=== PATIENT | male | born 1980 | race Caucasian/White ===

== ENCOUNTER 2016-10-06 10:15 | Emergency (ER) | payer MEDICAID ==
[~2016-10-06] VITALS: Wt 68.5 kg
[~2016-10-06 10:15] MED LIST: BACTDS PO; CLIN-73 PO; HYDR-3498 PO; IBUP-1542 PO
[2016-10-06] MEDS ORDERED: SOD CHLORIDE 0.9% 1,000 ML IV STA (11:40)
[2016-10-06 12:07] LABS: ALBUMIN 4.5 g/dl (3.3-4.9)
[2016-10-06 12:08] LABS: BASOPHIL # 0.1 10^3/ul (0.0-0.1); BASOPHILS % 0.6 % (0.0-2.0); EOSINOPHILS # 0.1 10^3/ul (0.0-0.5); EOSINOPHILS % 1.4 % (0.0-7.0); HEMATOCRIT 39.5 % (42.0-52.0); HEMOGLOBIN 13.5 g/dl (14.0-18.0); LYMPHOCYTES # 3.2 10^3/ul (0.8-2.9); LYMPHOCYTES % 34.9 % (15.0-51.0); MEAN CORPUSCULAR HEMOGLOBIN 28.8 pg (29.0-33.0); MEAN CORPUSCULAR HGB CONC 34.1 g/dl (32.0-37.0); MEAN CORPUSCULAR VOLUME 84.4 fl (82.0-101.0); MEAN PLATELET VOLUME 9.5 fl (7.4-10.4); MONOCYTE # 0.6 10^3/ul (0.3-0.9); MONOCYTES % 6.4 % (0.0-11.0); NEUTROPHIL # 5.3 10^3/ul (1.6-7.5); NEUTROPHILS % 56.7 % (39.0-77.0); PLATELET COUNT 226 10^3/UL (140-440); POTASSIUM 3.4 mmol/L (3.5-5.1); RED BLOOD COUNT 4.68 10^6/ul (4.70-6.10); RED CELL DISTRIBUTION WIDTH 13.1 % (11.5-14.5); UNCORRECTED WBC 9.3 10^3/ul (4.8-10.8); WHITE BLOOD COUNT 9.3 10^3/ul (4.8-10.8)
[2016-10-06 12:09] LABS: ADD UMIC YES; URINE BILIRUBIN (Dip) NEGATIVE (NEGATIVE); URINE BLOOD (Dip) NEGATIVE (NEGATIVE); URINE COLOR YELLOW (YELLOW); URINE GLUCOSE (Dip) NEGATIVE (NEGATIVE); URINE KETONES (Dip) NEGATIVE (NEGATIVE); URINE LEUKOCYTE ESTERASE (Dip) NEGATIVE (NEGATIVE); URINE NITRITE (Dip) NEGATIVE (NEGATIVE); URINE TOTAL PROTEIN (Dip) TRACE (NEGATIVE); URINE UROBILINOGEN (Dip) 1.0 E.U./dL (0.1-1.0)
[2016-10-06 12:10] LABS: ALBUMIN/GLOBULIN RATIO 1.18; BILIRUBIN,INDIRECT 0.4 mg/dl (0-1.1); BILIRUBIN,TOTAL 0.4 mg/dl (0.2-1.3); CREATININE 0.72 mg/dl (0.61-1.24); TOTAL PROTEIN 8.3 g/dl (6.1-8.1)
[2016-10-06 12:18] LABS: CONDITION 1
[2016-10-06 12:33] LABS: MUCUS,URINE MODERATE; SQUAMOUS EPITHELIAL CELL,UR FEW; URINE RBCS NONE SEEN /HPF (0)
--- NOTE | 2016-10-06 13:59 | ERD ---
ER Documentation Chief Complaint Date/Time DATE: 10/06/16 TIME: 13:53 Chief Complaint left lower abd pain for 1 month with diarrhea no distress noted. HPI 35-year-old male with no significant past medical history presents to the ED complaining of having nonbloody nonmucoid will diarrhea since 1 month ago every day. States that he did have one episode of nonbilious nonbloody vomiting 5 days ago. Reports that he has left lower quadrant abdominal pain when she has diarrhea. States that he does not have decreased appetite however when he does eat he feels like he will have diarrhea. Describes the pain as an achy pain and rates it a 9 out of 10. Denies any abdominal surgeries, smoking, alcohol use, drug use. Denies any history of diverticulosis. Denies any recent traveling. Denies any scrotal pain, dysuria, urgency, frequency, hematuria. ROS All systems reviewed and are negative except as per history of present illness. Medications Home Meds Active Scripts Ibuprofen* (Motrin*) 600 Mg Tab, 600 MG PO Q6H Y for PAIN AND OR ELEVATED TEMP, #30 TAB Prov:MILADIS RAMÍREZ NP 08/10/16 Clindamycin Hcl* (Clindamycin Hcl*) 300 Mg Capsule, 300 MG PO TID for 10 Days, CAP Prov:MILADIS RAMÍREZ NP 08/10/16 Ibuprofen* (Motrin*) 600 Mg Tab, 600 MG PO Q6H Y for PAIN AND OR ELEVATED TEMP, #30 Prov:MILADIS RAMÍREZ NP 05/06/15 Hydrocodone Bit-Acetaminophen* ([place]*) 5-325 Mg Tab, 1 TAB PO Q6 Y for PAIN, # 20 TAB Prov:MILADIS RAMÍREZ NP 05/06/15 Clindamycin Hcl* (Clindamycin Hcl*) 300 Mg Capsule, 300 MG PO TID for 10 Days, CAP Prov:MILADIS RAMÍREZ NP 05/06/15 Sulfamethoxazole-Trimethoprim* (Bactrim* DS) 800-160 Mg Tab, 1 TAB PO BID for 10 Days, TAB Prov:MILADIS RAMÍREZ NP 05/06/15 Allergies Allergies: Coded Allergies: No Known Allergy (Unverified , 05/05/15) PMhx/Soc Medical and Surgical Hx: pt denies Medical Hx, pt denies Surgical Hx Hx Alcohol Use: No Hx Substance Use: No Hx Tobacco Use: No Smoking Status: Never smoker Physical Exam Vitals Vital Signs Date Time Temp Pulse Resp B/P Pulse Ox O2 Delivery O2 Flow Rate FiO2 10/06/16 10:17 97.9 80 21 132/81 99 Physical Exam Const: Buy-umb-hoblyluen, well-nourished. In no acute distress. Head: Atraumatic, normocephalic Eyes: Normal Conjunctiva without injection. No purulent discharge. ENT: Normal external ear, nose. Moist oropharynx without tonsillar exudates. Non -erythematous pharynx. Uvula midline. No drooling. No trismus. Neck: No cervical midline tenderness. Full range of motion. No meningismus. No cervical lymphadenopathy. No JVD. Resp: Clear to auscultation bilaterally. No wheezing, rhonchi, rales, or crackles. No accessory muscle use. No retractions. Cardio: Regular rate and rhythm. No murmurs, rubs or gallops. Abd: Soft, nontender to palpation, non distended. Normal bowel sounds. No palpable masses. No rebound tenderness. No guarding. Negative McBurney's point. Negative psoas sign. Negative obturator sign. : Uncircumcised penis. No paraphimosis. No phimosis. No hernias noted. No penile discharge. No tenderness to palpation of the scrotum or penis. Skin: No petechiae or rashes Back: No midline tenderness. No CVA tenderness. Ext: No cyanosis, or edema. Neur: Awake and alert. Normal gait. Normal coordination. Psych: Normal Mood and Affect Result Diagram: 10/06/16 1150 10/06/16 1150 Results 24 hrs Laboratory Tests Test 10/06/16 11:50 Alanine Aminotransferase (ALT/SGPT) 35IU/L Albumin 4.5g/dl Albumin/Globulin Ratio 1.18 Alkaline Phosphatase 131IU/L Anion Gap 17 Aspartate Amino Transf (AST/SGOT) 31IU/L Basophils # 0.110^3/ul Basophils % 0.6% Blood Morphology Comment Blood Urea Nitrogen 15mg/dl Calcium Level 9.0mg/dl Carbon Dioxide Level 29mmol/L Chloride Level 102mmol/L Creatinine 0.72mg/dl Direct Bilirubin 0.00mg/dl Eosinophils # 0.110^3/ul Eosinophils % 1.4% Globulin 3.80g/dl Glucose Level 105mg/dl Hematocrit 39.5% Hemoglobin 13.5g/dl Indirect Bilirubin 0.4mg/dl Lipase 88U/L Lymphocytes # 3.210^3/ul Lymphocytes % 34.9% Mean Corpuscular Hemoglobin 28.8pg Mean Corpuscular Hemoglobin Concent 34.1g/dl Mean Corpuscular Volume 84.4fl Mean Platelet Volume 9.5fl Monocytes # 0.610^3/ul Monocytes % 6.4% Neutrophils # 5.310^3/ul Neutrophils % 56.7% Nucleated Red Blood Cells # 0.010^3/ul Nucleated Red Blood Cells % 0.0/100WBC Platelet Count 47302^3/UL Potassium Level 3.4mmol/L Red Blood Count 4.6810^6/ul Red Cell Distribution Width 13.1% Sodium Level 145mmol/L Total Bilirubin 0.4mg/dl Total Protein 8.3g/dl Urine Bilirubin NEGATIVE Urine Clarity CLEAR Urine Color YELLOW Urine Glucose NEGATIVE% Urine Hemoglobin NEGATIVE Urine Ketones NEGATIVE Urine Leukocyte Esterase NEGATIVE Urine Microscopic RBC NONE SEEN/HPF Urine Microscopic WBC 0-2/HPF Urine Mucus MODERATE Urine Nitrite NEGATIVE Urine Specific [place] 1.025 Urine Squamous Epithelial Cells FEW Urine Total Protein TRACE Urine Urobilinogen 1.0 E.U./dL Urine pH 6.5 White Blood Count 9.310^3/ul Current Medications Medications (Trade) Dose Ordered Sig/Vira Route PRN Reason Start Time Stop Time Status Last Admin Dose Admin Sodium Chloride (NS) 1,000 ml @ 1,000 mls/hr Q1H STAT IV 10/06/16 11:40 10/06/16 12:39 DC 10/06/16 11:55 Procedures/MDM 35-year-old male with no significant past medical history presents to the ED complaining of diarrhea that has been occurring every day. Patient is afebrile and nontoxic-appearing. Patient has normal vital signs. Patient was further worked up with CBC, CMP, lipase, UA. Patient's pain and symptoms have improved after treatment with 1 L of normal saline. CBC: No leukocytosis. No e/o of systemic infection. No e/o anemia. CMP: No e/o severe acidosis, alkalosis, renal failure, diabetic ketoacidosis, liver disease Lipase within normal limits. Urine: No leukocyte esterase, no nitrites, no hematuria. At this time patient does not have any leukocytosis. Diarrhea is nonbloody. Patient reports that he only has left lower quadrant pain when he has diarrhea. Low suspicion for bacterial diarrhea, hernias, diverticulitis. No indication for CT of the abdomen and pelvis at this time. A differential diagnosis considered includes but is not limited to testicular torsion, gastritis, GERD, peptic ulcer disease, cholecystitis, choledocholithiasis, cholangitis, pancreatitis, appendicitis, bowel obstruction, ileus, volvulus, nephrolithiasis , pyelonephritis, hepatitis, perforated viscus, diverticulitis, abdominal hernia , acute abdomen, mesenteric ischemia or other emergent conditions. Discharge medications: Instructed patient to purchase probiotics. Follow up with primary care physician in 1-2 days for referral to controlled atmospheric furnace brazer. Instructed patient to return to the ED sooner for any worsening symptoms. Patient's questions were answered. Patient understood and agreed with discharge plan. Patient discharged stable. Departure Diagnosis: Primary Impression: Diarrhea Diarrhea type: unspecified type Qualified Code: R19.7 - Diarrhea, unspecified type Condition: Stable Patient Instructions: Treating Diarrhea, Diet, Vomiting Or Diarrhea [6Yr-Adult] [facility] Usted se de paz hecho un examen mdico de control que le indica que no est en álvaro condicin que requiera tratamiento urgente en el Departamento de Emergencia. Un estudio ms profundo y el tratamiento de garcia condicin pueden esperar sin ningn riesgo hasta que usted sea atendida/o en el consultorio de garcia mdico o álvaro cl shanel. Es responsabilidad suya arreglar álvaro jordi para el seguimiento del shante. MANEJO DE CONDICIONES NO URGENTES EN EL FUTURO 1) Si usted tiene un mdico de atencin primaria: Usted debera llamar a garcia mdico de atencin primaria antes de venir al departamento de emergencia. Despus de las horas de consultorio, garcia doctor o garcia asociado/a est disponible por telfono. El mdico o enfermero de katerin en el servicio telefnico puede asesorarle por luna medio para atender el problema, o shante contrario se puede programar álvaro jordi. 2) Si usted no tiene un mdico de atencin primaria: Llame al mdico o clnica de referencia que aparece abajo lamont las horas de consultorio para hacer álvaro jordi para que le vean. CLINICAS: [facility] [phone] [facility] [phone] [facility] [phone] [place] [address] [phone] [place] [id number] [phone] [facility]. [phone] [address] [facility]. [facility] () Usted se de paz hecho un examen mdico de control que le indica que no est en álvaro condicin que requiera tratamiento urgente en el Departamento de Emergencia. Un estudio ms profundo y el tratamiento de garcia condicin pueden esperar sin ningn riesgo hasta que usted sea atendida/o en el consultorio de garcia mdico o álvaro cl shanel. Es responsabilidad suya arreglar álvaro jordi para el seguimiento del shante. MANEJO DE CONDICIONES NO URGENTES EN EL FUTURO 1) Si usted tiene un mdico de atencin primaria: Usted debera llamar a garcia mdico de atencin primaria antes de venir al departamento de emergencia. Despus de las horas de consultorio, garcia doctor o garcia asociado/a est disponible por telfono. El mdico o enfermero de katerin en el servicio telefnico puede asesorarle por luna medio para atender el problema, o shante contrario se puede programar álvaro jordi. 2) Si usted no tiene un mdico de atencin primaria: Llame al mdico o condado institucions de referencia que aparece abajo lamont las horas de consultorio para hacer álvaro jordi para que le vean. SI USTED NO PUEDE PAGAR PARA MAXIM UN MEDICO puede ir a: [facility] [id number] [place] [address] [facility] [address] [place] [address] [facility] [address] [place] [address] [facility] [address] [place] [address] [facility] URGENT CARE/SPECIALTIES Additional Instructions: Compra de probiticos para ayudar con la diarrea. Visite a garcia mdico maana para un EXAMEN para un referido a un gastroenterlogo para los cultivos de heces y la colonoscopia. Regrese a estas instalaciones si no se mejora tunde esperbamos o tunde le dijimos. ANTONIA BUTT PA-C Oct 06, 2016 13:59
== END 2016-10-06 14:01 | disposition home or self-care (01) ==
LOC: FTE 10:15
DX: R19.7 Diarrhea, unspecified (principal)
CPT/HCPCS: 36415; 80053; 81001; 83690; 85025; J7030; Z7502; 81003